=== PATIENT | female | born 1975 | race African-American/Black ===

== ENCOUNTER 2018-06-22 21:19 | Emergency (ER) | payer OTHER ==
[~2018-06-22] VITALS: Ht 152.4 cm; Wt 162.4 kg
[~2018-06-22 21:19] MED LIST: ASPI325T11 PO; ATOR10TA60 PO; DICL75TA PO; FLUT1DIS3 IH; FURO-69 PO; HYDR-2766 PO; LISI-334 PO; METF500T16 PO; OMEP40CA5 PO; ONDA4TAB7 PO; OXYC-323 PO; PROM6.257 PO
[2018-06-22] MEDS ORDERED: ASPIRIN 325 MG TABLET PO ONE (21:45)
[2018-06-22 22:11] LABS: BASO # 0.1 x10^3/uL (0.0-0.2); BASO % 1 % (0-3); EOS # 0.3 x10^3/uL (0.0-0.7); EOS % 3 % (0-3); HEMATOCRIT 40.5 % (36.0-47.0); HEMOGLOBIN 13.4 g/dL (12.0-15.5); LYMPH # 2.8 x10^3/uL (1.0-4.8); LYMPH % 29 % (24-48); MEAN CORPUSCULAR HEMOGLOBIN 26 pg (25-35); MEAN CORPUSCULAR HGB CONC 33 g/dL (31-37); MEAN CORPUSCULAR VOLUME 79 fL (79-100); MONO # 0.5 x10^3/uL (0.0-1.1); MONO % 5 % (0-9); NEUT % 62 % (31-73); PLATELET COUNT 270 x10^3/uL (140-400); RED BLOOD COUNT 5.12 x10^6/uL (3.50-5.40); RED CELL DISTRIBUTION WIDTH 15.9 % (11.5-14.5); WHITE BLOOD COUNT 9.7 x10^3/uL (4.0-11.0)
[2018-06-22] MEDS ORDERED: DEXAMETHASONE SOD PHOS 20 MG/5 ML VIAL. IV ONE (22:15)
[2018-06-22 22:19] LABS: CREATININE 1.1 mg/dL (0.6-1.0); GFR 66.6; POTASSIUM 3.5 mmol/L (3.5-5.1)
[2018-06-22 22:20] LABS: PROTHROMBIN TIME PATIENT 13.7 SEC (11.7-14.0)
[2018-06-22 22:26] LABS: ALBUMIN 3.5 g/dL (3.4-5.0); ALBUMIN/GLOBULIN RATIO 0.9 (1.0-1.7); MAGNESIUM 1.8 mg/dL (1.8-2.4); TOTAL BILIRUBIN 0.2 mg/dL (0.2-1.0); TOTAL PROTEIN 7.2 g/dL (6.4-8.2)
--- NOTE | 2018-06-22 23:13 | PHYS DOC ---
Past Medical History Past Medical History: Asthma, Diabetes-Type II, Hypertension, Pneumonia Past Surgical History: Tonsillectomy, Other Additional Past Surgical Histo: adenoidectomy, fallopian tube surgery, CARPAL TUNNEL Smoking: Quit Less Than 1 Year, Second-hand Alcohol Use: None Drug Use: None Adult General Chief Complaint Chief Complaint: CHEST PAIN HPI HPI Patient is a 42 year old female with past medical history of asthma and DM 2 hypertension and recurrent pneumonia who presents with acute onset right-sided chest pain. Patient notes pain began one hour prior to arrival and patient that pain as dull constant with severity of 8 out of 10 patient notes that she has pain radiating down the right side of her chest and into her right leg down to her foot. Patient notes she has had 2 days of productive cough and shortness of breath. Patient notes she has done 5 DuoNeb breathing treatments at home with some relief of her shortness of breath. Patient denies fevers but endorses chills Review of Systems Review of Systems Constitutional: Denies fever or chills [] Eyes: Denies change in visual acuity, redness, or eye pain [] HENT: Denies nasal congestion or sore throat [] Respiratory: Notes cough and shortness of breath [] Cardiovascular: Notes chest pain denies palpitations[] GI: Denies abdominal pain, nausea, vomiting, bloody stools or diarrhea [] : Denies dysuria or hematuria [] Musculoskeletal: right leg pain denies back pain[] Integument: Denies rash or skin lesions [] Neurologic: Denies headache, focal weakness or sensory changes [] [] Complete systems were reviewed and found to be within normal limits, except as documented in this note. Current Medications Current Medications Current Medications Medications (Trade) Dose Ordered Sig/[facility] Start Time Stop Time Status Last Admin Dose Admin Aspirin (Marilynn Aspirin) 325 mg 1X ONCE 06/22/18 21:45 06/22/18 21:51 DC Dexamethasone Sodium Phosphate (Decadron) 10 mg 1X ONCE 06/22/18 22:15 06/22/18 22:16 DC 06/22/18 22:15 10 MG Fentanyl Citrate (Fentanyl 2ml Vial) 50 mcg 1X ONCE 06/22/18 23:30 06/22/18 23:31 DC 06/22/18 23:30 50 MCG Orphenadrine Citrate (Norflex) 60 mg 1X ONCE 06/23/18 02:30 06/23/18 02:31 Allergies Allergies Allergies Coded Allergies Type Severity Reaction Last Updated Verified Iodinated Contrast- Oral and IV Dye Allergy Severe Anaphylaxis 06/22/14 Yes Latex, Natural Rubber Allergy Intermediate hives, rash 01/31/14 Yes Penicillins Allergy Intermediate hives, rash 01/31/14 Yes Sulfa (Sulfonamide Antibiotics) Allergy Intermediate hives, rash 01/31/14 Yes aspirin Allergy Intermediate 06/22/18 Yes ibuprofen Allergy Intermediate hives, rash 01/31/14 Yes propoxyphene Allergy Intermediate hives, rash 01/31/14 Yes Physical Exam Physical Exam Constitutional: Well developed, well nourished, no acute distress, non-toxic appearance. [] HENT: Normocephalic, atraumatic, bilateral external ears normal, oropharynx moist, no oral exudates, nose normal. [] Eyes: PERRLA, EOMI, conjunctiva normal, no discharge. [] Neck: Normal range of motion, no tenderness, supple, no stridor. [] Cardiovascular:Heart rate regular rhythm, no murmur [] Lungs & Thorax: Bilateral breath sounds clear to auscultation [] Abdomen: Bowel sounds normal, soft, no tenderness, no masses, no pulsatile masses. [] Skin: Warm, dry, no erythema, no rash. [] Back: No tenderness, no CVA tenderness. [] Extremities: No tenderness, no cyanosis, no clubbing, ROM intact, no edema. [] Neurologic: Alert and oriented X 3, normal motor function, normal sensory function, no focal deficits noted. [] Psychologic: Affect normal, judgement normal, mood normal. [] Current Patient Data Vital Signs Vital Signs Date Time Temp Pulse Resp B/P (MAP) Pulse Ox O2 Delivery O2 Flow Rate FiO2 06/22/18 21:26 98.4 97 22 172/110 (130) 97 Room Air 98.4 Lab Values Laboratory Tests Test 06/22/18 22:00 06/22/18 22:45 06/23/18 00:30 White Blood Count 9.7 x10^3/uL (4.0-11.0) Red Blood Count 5.12 x10^6/uL (3.50-5.40) Hemoglobin 13.4 g/dL (12.0-15.5) Hematocrit 40.5 % (36.0-47.0) Mean Corpuscular Volume 79 fL (79-100) Mean Corpuscular Hemoglobin 26 pg (25-35) Mean Corpuscular Hemoglobin Concent 33 g/dL (31-37) Red Cell Distribution Width 15.9 % (11.5-14.5) H Platelet Count 270 x10^3/uL (140-400) Neutrophils (%) (Auto) 62 % (31-73) Lymphocytes (%) (Auto) 29 % (24-48) Monocytes (%) (Auto) 5 % (0-9) Eosinophils (%) (Auto) 3 % (0-3) Basophils (%) (Auto) 1 % (0-3) Neutrophils # (Auto) 6.0 x10^3uL (1.8-7.7) Lymphocytes # (Auto) 2.8 x10^3/uL (1.0-4.8) Monocytes # (Auto) 0.5 x10^3/uL (0.0-1.1) Eosinophils # (Auto) 0.3 x10^3/uL (0.0-0.7) Basophils # (Auto) 0.1 x10^3/uL (0.0-0.2) Prothrombin Time 13.7 SEC (11.7-14.0) Prothrombin Time INR 1.1 (0.8-1.1) D-Dimer (Naina) < 0.27 ug/mlFEU Sodium Level 140 mmol/L (136-145) Potassium Level 3.5 mmol/L (3.5-5.1) Chloride Level 104 mmol/L (98-107) Carbon Dioxide Level 28 mmol/L (21-32) Anion Gap 8 (6-14) Blood Urea Nitrogen 7 mg/dL (7-20) Creatinine 1.1 mg/dL (0.6-1.0) H Estimated GFR (Cockcroft-Gault) 66.6 BUN/Creatinine Ratio 6 (6-20) Glucose Level 226 mg/dL (70-99) H Calcium Level 9.0 mg/dL (8.5-10.1) Magnesium Level 1.8 mg/dL (1.8-2.4) Total Bilirubin 0.2 mg/dL (0.2-1.0) Aspartate Amino Transferase (AST) 19 U/L (15-37) Alanine Aminotransferase (ALT) 38 U/L (14-59) Alkaline Phosphatase 66 U/L (46-116) Creatine Kinase 611 U/L (26-192) H Troponin I Quantitative < 0.017 ng/mL (0.000-0.055) < 0.017 ng/mL (0.000-0.055) MZ-Yiv-B-Type Natriuretic Peptide 104 pg/mL (0-124) Total Protein 7.2 g/dL (6.4-8.2) Albumin 3.5 g/dL (3.4-5.0) Albumin/Globulin Ratio 0.9 (1.0-1.7) L Lipase 152 U/L (73-393) Lactic Acid Level 1.4 mmol/L (0.4-2.0) Laboratory Tests 06/22/18 22:00 Laboratory Tests 06/22/18 22:00 EKG EKG @2304 NSR at 95 bpm, nonspecific t wave inversion I and aVL, NO ST elevation Radiology/Procedures Radiology/Procedures Chest x-ray -(Preliminary report the ED physician)- evaluation limited by overexposure of film. No clear consolidation seen. Markings possibly secondary to overexposure.[] Course & Med Decision Making Course & Med Decision Making 42 year-old female presenting to the emergency department for right-sided chest pain and lower extremity pain. Patient notes that the pain has been present for one hour and was dull and constant in nature with severity of 10. Patient denies diaphoresis, pleuritic pain, lower extremity swelling, dizziness, syncope , falls. Patient notes that she has had 2 days of a productive cough and chills with increased shortness of air. Patient notes she has done 5 DuoNeb breathing treatments at home with some relief. On exam lungs were clear to auscultation with good air movement and patient was satting well on room air. Gave patient fentanyl for pain and Decadron. She reports relief of chest pain with fentanyl and decrease in lower extremity pain. Lower extremity Doppler of the right lower extremity does not show any evidence of DVT. D-dimer negative. Labs collected and reviewed. Patient given the option for azithromycin and Tessalon Perles.Patient stable for discharge with outpatient follow-up with PCP. Discussed findings and plan with patient, who acknowledge understanding and agreement. [] Dragon Disclaimer Dragon Disclaimer This electronic medical record was generated, in whole or in part, using a voice recognition dictation system. Departure Departure Impression: Primary Impression: Atypical chest pain Additional Impressions: Bronchitis Right leg pain Disposition: 01 HOME, SELF-CARE Condition: STABLE Referrals: TAN BURNS (PCP) Patient Instructions: Acute Bronchitis, [id number], Chest Pain (Nonspecific) , [id number] Scripts Benzonatate (TESSALON PERLE) 100 Mg Capsule 100 MG PO TID PRN for COUGH, #20 CAP Prov: LAWSON SANDOVAL DO 06/23/18 Orphenadrine Citrate (ORPHENADRINE CITRATE) 100 Mg Tablet.er 1 TAB PO BID PRN for MUSCLE PAIN, #14 TAB 0 Refills Prov: LAWSON SANDOVAL DO 06/23/18 Azithromycin (ZITHROMAX) 250 Mg Tablet 1 PKG PO UD for bronchitis, #6 TAB Take 2 tablets on day 1 and then 1 tablet each day for the next 4 days as directed Prov: LAWSON SANDOVAL DO 06/23/18 Prednisone (PREDNISONE) 20 Mg Tablet 2 TAB PO DAILY, #8 TAB Prov: LAWSON SANDOVAL DO 06/23/18 Problem Qualifiers LAWSON SANDOVAL DO Jun 22, 2018 23:13
[2018-06-22] MEDS ORDERED: fentaNYL PF VIAL 100 MCG/2 ML VIAL IV ONE (23:30)
--- NOTE | 2018-06-22 23:42 | RAD ---
Examination: Right Lower Extremity Venous Doppler Ultrasound History: Right leg pain Comparison: None Procedure: Hopkins scale, color flow 2D and spectal waveform analysis images are obtained with and without compression in the area of the common femoral vein, superficial femoral vein - femoral vein junction, main femoral vein (superficial femoral vein) and popliteal vein. Veins of the proximal calf are also imaged. Findings: There is normal duplex flow, color flow and compressibility of all visualized vein segments. No evidence of deep venous thrombus is present. Examination somewhat limited due to patient body habitus. Impression: No evidence of DVT in the visualized right lower extremity. Electronically signed by: Ashok Carreno MD (06/22/2018 11:38 PM) [facility]
--- NOTE | 2018-06-23 01:15 | EKG ---
[facility] [address] [place] [address] Test Date: 2018-06-22 Test Time: 23:04:03 Pat Name: HERACLIO GIRALDO Department: Room: Gender: F Lending Manager: : 1975 Requested By: LAWSON SANDOVAL Order Number: [id number] Reading MD: Troy Mojica Measurements Intervals [place] Rate: 94 P: 47 WV: 126 QRS: 28 QRSD: 82 T: 62 QT: 366 QTc: 463 Interpretive Statements SINUS RHYTHM NON SPECIFIC T ABNORMALITY Electronically Signed On 06-23-2018 11:30:17 CDT by Troy Mojica
[2018-06-23] MEDS ORDERED: AZIT250T PO (01:44)
[2018-06-23] MEDS ORDERED: PRED20TA PO (01:44)
[2018-06-23] MEDS ORDERED: ORPH100T PO (01:44)
[2018-06-23] MEDS ORDERED: BENZ100C PO (01:51)
[2018-06-23 02:00] VITALS: BP 173/89
[2018-06-23] MEDS ORDERED: ORPHENADRINE CITRATE 60 MG/2 ML VIAL. IV ONE (02:30)
--- NOTE | 2018-06-23 02:41 | RAD ---
EXAM: CHEST 1 VIEW History: Shortness of breath COMPARISON: 01/31/2014 TECHNIQUE: Single portable radiograph of the chest FINDINGS: Mild cardiomegaly. Mild to moderate prominent bilateral interstitial lung markings. The costophrenic sulci are clear and well demarcated. IMPRESSION: Mild to moderate prominent bilateral interstitial lung markings likely congestive changes. Electronically signed by: Ashok Carreno MD (06/23/2018 2:38 AM) [facility]
== END 2018-06-23 02:18 | disposition home or self-care (01) ==
LOC: ER 21:19
DX: R07.89 Other chest pain (principal); J40 Bronchitis, not specified as acute or chronic; M79.604 Pain in right leg; J45.909 Unspecified asthma, uncomplicated; E11.9 Type 2 diabetes mellitus without complications; I10 Essential (primary) hypertension; Z77.22 Contact with and (suspected) exposure to environmental tobacco smoke (acute) (chronic); Z87.891 Personal history of nicotine dependence; Z88.2 Allergy status to sulfonamides; Z88.6 Allergy status to analgesic agent; Z88.0 Allergy status to penicillin; Z88.8 Allergy status to other drugs, medicaments and biological substances; Z91.041 Radiographic dye allergy status; Z91.040 Latex allergy status
CPT/HCPCS: 36415; 71046; 80053; 82550; 83605; 83690; 83735; 83880; 84484; 85025; 85379; 85610; 93005; 93971; 96374; 96375; 99285; J1100; J2360; J3010

== ENCOUNTER 2019-04-26 01:20 | Emergency (ER) | payer OTHER ==
[~2019-04-26] VITALS: Ht 152.4 cm; Wt 131.1 kg
[~2019-04-26 01:20] MED LIST changes: +AZIT250T PO; +BENZ100C PO; -HYDR-2766 PO; +HYDR-2769 PO; +ORPH100T PO; -OXYC-323 PO; +OXYC1TAB15 PO; +PRED20TA PO
[2019-04-26 03:08] LABS: BILIRUBIN,URINE SMALL (NEG); CLARITY,URINE CLEAR; COLOR,URINE AMBER; NITRITE,URINE NEGATIVE (NEG); PH,URINE 5.5; PROTEIN,URINE 30 mg/dL (NEG-TRACE)
[2019-04-26 03:13] LABS: RBC,URINE TNTC /HPF (0-2); SQUAMOUS EPITHELIAL CELL,UR FEW /LPF
[2019-04-26 03:14] LABS: BACTERIA,URINE 0 /HPF (0-FEW); WBC,URINE RARE /HPF (0-4)
[2019-04-26 03:24] LABS: BASO # 0.1 x10^3/uL (0.0-0.2); BASO % 1 % (0-3); EOS # 0.3 x10^3/uL (0.0-0.7); EOS % 3 % (0-3); HEMOGLOBIN 12.7 g/dL (12.0-15.5); LYMPH # 3.1 x10^3/uL (1.0-4.8); LYMPH % 37 % (24-48); MEAN CORPUSCULAR HEMOGLOBIN 26 pg (25-35); MEAN CORPUSCULAR HGB CONC 33 g/dL (31-37); MEAN CORPUSCULAR VOLUME 78 fL (79-100); MONO # 0.4 x10^3/uL (0.0-1.1); MONO % 5 % (0-9); NEUT # 4.6 x10^3/uL (1.8-7.7); NEUT % 54 % (31-73); PLATELET COUNT 267 x10^3/uL (140-400); RED BLOOD COUNT 4.84 x10^6/uL (3.50-5.40); RED CELL DISTRIBUTION WIDTH 14.7 % (11.5-14.5); WHITE BLOOD COUNT 8.5 x10^3/uL (4.0-11.0)
[2019-04-26 03:29] LABS: CALCIUM 8.6 mg/dL (8.5-10.1); CREATININE 1.1 mg/dL (0.6-1.0); GFR 66.2; POTASSIUM 3.2 mmol/L (3.5-5.1)
[2019-04-26] MEDS ORDERED: ONDANSETRON PF 4 MG/2 ML VIAL. IV ONE (03:30)
[2019-04-26] MEDS ORDERED: MORPHINE SULFATE 4 MG/ML VIAL. IV ONE ×2 (03:30→05:00)
[2019-04-26] MEDS ORDERED: IV NORMAL SALINE 1000ML BAG 1,000 ML IV ONE (03:30)
[2019-04-26 03:31] LABS: PROTHROMBIN TIME PATIENT 12.1 SEC (11.7-14.0)
[2019-04-26 03:37] LABS: ALBUMIN 3.4 g/dL (3.4-5.0); TOTAL BILIRUBIN 0.2 mg/dL (0.2-1.0); TOTAL PROTEIN 6.8 g/dL (6.4-8.2)
--- NOTE | 2019-04-26 04:38 | RAD ---
TRANSVAGINAL Clinical Indication: Right lower quadrant pain, evaluate ovarian cyst. Patient having surgery to remove ovary cysts May 18. Comparison: CT abdomen and pelvis without contrast, November 09, 2014. TECHNIQUE: Real-time ultrasound imaging of the pelvis using transvaginal window is performed. Findings: Anteverted uterus. Uterus measures 8.8 x 4.6 x 4 cm. There is a hypoechoic mass in the myometrium posteriorly near the fundus that is probably a subserosal fibroid measuring 2.8 x 1.7 x 2.1 cm. There is a second hypoechoic round mass on the right near the endometrium measuring 1.3 cm. The endometrial stripe is normal measuring 9 mm. There is normal blood flow in the ovaries. There is a 1.4 cm cyst adjacent to the left ovary. The cyst may be ovarian or paraovarian. There is a 5 mm calcification in the left ovary, unchanged. There is a simple cyst of the right ovary measuring up to 2.4 cm. There are 2 cysts of the right ovary that contain internal echoes, both measure up to 1.8 cm. These cysts may be hemorrhagic. No pelvic free fluid is identified. No evidence of adnexal mass. IMPRESSION: 1. Normal blood flow in the ovaries. 2. Right ovary contains 2 small functional cysts with internal echoes that may be hemorrhagic. 3. There are 2 uterine fibroids. 4. No pelvic free fluid. Electronically signed by: Seven Alatorre MD (04/26/2019 4:35 AM) [facility]
--- NOTE | 2019-04-26 04:45 | PHYS DOC ---
Past Medical History Past Medical History: Asthma, Diabetes-Type II, Hypertension, Pneumonia Past Surgical History: Tonsillectomy, Other Additional Past Surgical Histo: adenoidectomy, fallopian tube surgery, CARPAL TUNNEL, GASTRIC SLEEVE Alcohol Use: None Drug Use: None Adult General Chief Complaint Chief Complaint: ABDOMINAL PAIN HPI HPI Patient is a 43 year old f with cc of abdo pain x 24 hours right lower quadrant pain she also feels on the left she says she has known ovarian cysts she is due for surgery get them taken out in about a month. She says she's actually been dealing with this pain for 3 months but it got worse yesterday. Sharp she does not have anything at home for the pain. She currently denies of history of high blood pressure although she said that she did have it last year but it went away after her gastric sleeve was done she also her last measure. That she can remember was on April 12 however she started bleeding again today so she wasn't sure if that was an irregular cycle or related to her ovarian cyst Review of Systems Review of Systems Constitutional: Denies fever or chills [] Eyes: Denies change in visual acuity, redness, or eye pain [] HENT: Denies nasal congestion or sore throat [] Neurologic: Denies headache, focal weakness or sensory changes [] Endocrine: Denies polyuria or polydipsia [] All other systems were reviewed and found to be within normal limits, except as documented in this note. Current Medications Current Medications Current Medications Medications (Trade) Dose Ordered Sig/Dominique Start Time Stop Time Status Last Admin Dose Admin Labetalol HCl (Normodyne Iv Push) 20 mg 1X ONCE 04/26/19 05:00 04/26/19 05:01 DC 04/26/19 04:53 20 MG Morphine Sulfate (Morphine Sulfate) 4 mg 1X ONCE 04/26/19 05:00 04/26/19 05:01 DC 04/26/19 04:52 4 MG Ondansetron HCl (Zofran) 4 mg 1X ONCE 04/26/19 03:30 04/26/19 03:31 DC 04/26/19 03:21 4 MG Sodium Chloride 1,000 ml @ 1,000 mls/hr 1X ONCE 04/26/19 03:30 04/26/19 04:29 DC 04/26/19 03:21 1,000 MLS/HR Allergies Allergies Allergies Coded Allergies Type Severity Reaction Last Updated Verified Iodinated Contrast- Oral and IV Dye Allergy Severe Anaphylaxis 06/22/14 Yes Latex, Natural Rubber Allergy Intermediate hives, rash 01/31/14 Yes Penicillins Allergy Intermediate hives, rash 01/31/14 Yes Sulfa (Sulfonamide Antibiotics) Allergy Intermediate hives, rash 01/31/14 Yes aspirin Allergy Intermediate 06/22/18 Yes ibuprofen Allergy Intermediate hives, rash 01/31/14 Yes propoxyphene Allergy Intermediate hives, rash 01/31/14 Yes Physical Exam Physical Exam Constitutional: Well developed, well nourished, no acute distress, non-toxic appearance. [] HENT: Normocephalic, atraumatic, bilateral external ears normal, oropharynx moist, no oral exudates, nose normal. [] Eyes: PERRLA, EOMI, conjunctiva normal, no discharge. [] Neck: Normal range of motion, no tenderness, supple, no stridor. [] Cardiovascular:Heart rate regular rhythm, no murmur [] Abdominal exam did show some tenderness to palpation in the right inguinal region just above the inguinal ligament no peritoneal signs were noted. Left lower quadrant there is mild tenderness as well Back: No tenderness, no CVA tenderness. [] Extremities: No tenderness, no cyanosis, no clubbing, ROM intact, no edema. [] Neurologic: Alert and oriented X 3, normal motor function, normal sensory function, no focal deficits noted. [] Psychologic: Affect normal, judgement normal, mood normal. [] Current Patient Data Vital Signs Vital Signs Date Time Temp Pulse Resp B/P (MAP) Pulse Ox O2 Delivery O2 Flow Rate FiO2 04/26/19 04:53 71 204/115 04/26/19 04:52 16 99 Room Air 04/26/19 02:45 97.7 97.7 Lab Values Laboratory Tests Test 04/26/19 01:20 04/26/19 02:33 04/26/19 03:15 Urine Collection Type Unknown Urine Color Mayi Urine Clarity Clear Urine pH 5.5 Urine Specific Kel[place] >=1.030 Urine Protein 30 mg/dL (NEG-TRACE) Urine Glucose (UA) Negative mg/dL (NEG) Urine Ketones (Stick) Trace mg/dL (NEG) Urine Blood Large (NEG) Urine Nitrite Negative (NEG) Urine Bilirubin Small (NEG) Urine Urobilinogen Dipstick 1.0 mg/dL (0.2 mg/dL) Urine Leukocyte Esterase Negative (NEG) Urine RBC Tntc /HPF (0-2) Urine WBC Rare /HPF (0-4) Urine Squamous Epithelial Cells Few /LPF Urine Bacteria 0 /HPF (0-FEW) Urine Mucus Marked /LPF POC Urine HCG, Qualitative Hcg negative (Negative) White Blood Count 8.5 x10^3/uL (4.0-11.0) Red Blood Count 4.84 x10^6/uL (3.50-5.40) Hemoglobin 12.7 g/dL (12.0-15.5) Hematocrit 38.0 % (36.0-47.0) Mean Corpuscular Volume 78 fL (79-100) L Mean Corpuscular Hemoglobin 26 pg (25-35) Mean Corpuscular Hemoglobin Concent 33 g/dL (31-37) Red Cell Distribution Width 14.7 % (11.5-14.5) H Platelet Count 267 x10^3/uL (140-400) Neutrophils (%) (Auto) 54 % (31-73) Lymphocytes (%) (Auto) 37 % (24-48) Monocytes (%) (Auto) 5 % (0-9) Eosinophils (%) (Auto) 3 % (0-3) Basophils (%) (Auto) 1 % (0-3) Neutrophils # (Auto) 4.6 x10^3/uL (1.8-7.7) Lymphocytes # (Auto) 3.1 x10^3/uL (1.0-4.8) Monocytes # (Auto) 0.4 x10^3/uL (0.0-1.1) Eosinophils # (Auto) 0.3 x10^3/uL (0.0-0.7) Basophils # (Auto) 0.1 x10^3/uL (0.0-0.2) Prothrombin Time 12.1 SEC (11.7-14.0) Prothrombin Time INR 0.9 (0.8-1.1) Sodium Level 141 mmol/L (136-145) Potassium Level 3.2 mmol/L (3.5-5.1) L Chloride Level 104 mmol/L (98-107) Carbon Dioxide Level 27 mmol/L (21-32) Anion Gap 10 (6-14) Blood Urea Nitrogen 8 mg/dL (7-20) Creatinine 1.1 mg/dL (0.6-1.0) H Estimated GFR (Cockcroft-Gault) 66.2 BUN/Creatinine Ratio 7 (6-20) Glucose Level 96 mg/dL (70-99) Calcium Level 8.6 mg/dL (8.5-10.1) Total Bilirubin 0.2 mg/dL (0.2-1.0) Aspartate Amino Transferase (AST) 14 U/L (15-37) L Alanine Aminotransferase (ALT) 23 U/L (14-59) Alkaline Phosphatase 70 U/L (46-116) Total Protein 6.8 g/dL (6.4-8.2) Albumin 3.4 g/dL (3.4-5.0) Albumin/Globulin Ratio 1.0 (1.0-1.7) Lipase 124 U/L (73-393) Laboratory Tests 04/26/19 03:15 Laboratory Tests 04/26/19 03:15 EKG EKG [] Radiology/Procedures Radiology/Procedures [] Impressions: IMPRESSION: 1. Normal blood flow in the ovaries. 2. Right ovary contains 2 small functional cysts with internal echoes that may be hemorrhagic. 3. There are 2 uterine fibroids. 4. No pelvic free fluid. Electronically signed by: Seven Slater MD (04/26/2019 4:35 AM) [facility] DICTATED and SIGNED BY: SEVEN SLATER MD DATE: 04/26/19 0435 Course & Med Decision Making Course & Med Decision Making Pertinent Labs and Imaging studies reviewed. (See chart for details) []bp elev -- labetalol likely combo of undx'ed htn and pain. u/s noted pt has known cysts. no torsion Ultrasound showed no torsion. White blood count was normal we did give morphine in the emergency room which did help her pain. On further questioning it did seem like subacute pain she has had it really for a couple of months now but it got worse yesterday. She does have good follow-up in place. Noted the elevated blood pressure readings we did give a dose of IV labetalol because the blood pressure was in the 220 range. I do think she is to get back on oral blood pressure agents some of this may be related to pain but not that high. Prescription for amlodipine lisinopril and pain medication was provided return precautions were discussed and she voiced understanding of the instructions. Katt Disclaimer Katt Disclaimer This electronic medical record was generated, in whole or in part, using a voice recognition dictation system. Departure Departure Impression: Primary Impression: Ovarian cyst Disposition: HOME, SELF-CARE Condition: STABLE Referrals: TAN BURNS (PCP) Scripts Lisinopril (LISINOPRIL) 20 Mg Tablet 1 TAB PO DAILY, #30 TAB 0 Refills Prov: TRINIDAD BOOKER MD 04/26/19 Amlodipine Besylate (AMLODIPINE BESYLATE) 10 Mg Tablet 10 MG PO DAILY, #30 TAB Prov: TRINIDAD BOOKER MD 04/26/19 Hydrocodone/Apap 5-325 (NORCO 5-325 TABLET) 1 Each Tablet 1-2 EACH PO PRN Q6HRS PRN for PAIN, #15 as needed for pain Prov: TRINIDAD BOOKER MD 04/26/19 TRINIDAD BOOKER MD Apr 26, 2019 04:45
[2019-04-26] MEDS ORDERED: LISI-334 PO (04:56)
[2019-04-26] MEDS ORDERED: AMLO10TA8 PO (04:56)
[2019-04-26] MEDS ORDERED: HYDR-3164 PO (04:56)
[2019-04-26] MEDS ORDERED: LABETALOL 20 MG/4 ML DISP.SYRIN. IVP ONE (05:00)
[2019-04-26 05:15] VITALS: BP 178/116
== END 2019-04-26 05:39 | disposition home or self-care (01) ==
LOC: ER 01:20
DX: N83.291 Other ovarian cyst, right side (principal); D25.9 Leiomyoma of uterus, unspecified; J45.909 Unspecified asthma, uncomplicated; E11.9 Type 2 diabetes mellitus without complications; I10 Essential (primary) hypertension; Z98.890 Other specified postprocedural states; Z91.041 Radiographic dye allergy status; Z91.040 Latex allergy status; Z88.0 Allergy status to penicillin; Z88.2 Allergy status to sulfonamides; Z88.6 Allergy status to analgesic agent; Z88.8 Allergy status to other drugs, medicaments and biological substances
CPT/HCPCS: 36415; 76830; 80053; 81001; 81025; 83690; 85025; 85610; 96361; 96374; 96375; 96376; 99285; J2270; J2405; J3490; J7030

== ENCOUNTER 2019-05-14 23:22 | Emergency (ER) | payer MEDICAID, OTHER ==
[~2019-05-14] VITALS: Ht 152.4 cm; Wt 106.6 kg
[~2019-05-14 23:22] MED LIST changes: +AMLO10TA8 PO; +HYDR-3164 PO
[2019-05-14] MEDS ORDERED: IV NORMAL SALINE 1000ML BAG 1,000 ML IV ONE (23:45)
[2019-05-14 23:52] VITALS: BP 144/75
[2019-05-14] MEDS ORDERED: FAMOTIDINE 20 MG/2 ML VIAL IVP ONE (23:55)
[2019-05-14] MEDS ORDERED: ONDANSETRON PF 4 MG/2 ML VIAL. IV ONE (23:55)
[2019-05-15] MEDS ORDERED: DEXAMETHASONE SOD PHOS 20 MG/5 ML VIAL. IV ONE (00:15)
[2019-05-15] MEDS ORDERED: diphenhydrAMINE 50 MG/ML VIAL IVP ONE (00:15)
[2019-05-15 00:23] LABS: BILIRUBIN,URINE SMALL (NEG); CLARITY,URINE CLEAR; COLOR,URINE AMBER; NITRITE,URINE NEGATIVE (NEG); PH,URINE 5.5; PROTEIN,URINE NEGATIVE (NEG-TRACE)
[2019-05-15 00:37] LABS: BACTERIA,URINE 0 /HPF (0-FEW); HYALINE CASTS, URINE FEW /HPF; RBC,URINE OCC /HPF (0-2); SQUAMOUS EPITHELIAL CELL,UR MOD /LPF
[2019-05-15 00:46] LABS: BASO # 0.1 x10^3/uL (0.0-0.2); BASO % 1 % (0-3); EOS # 0.3 x10^3/uL (0.0-0.7); EOS % 5 % (0-3); HEMATOCRIT 39.4 % (36.0-47.0); HEMOGLOBIN 12.9 g/dL (12.0-15.5); LYMPH # 3.1 x10^3/uL (1.0-4.8); LYMPH % 42 % (24-48); MEAN CORPUSCULAR HEMOGLOBIN 26 pg (25-35); MEAN CORPUSCULAR HGB CONC 33 g/dL (31-37); MEAN CORPUSCULAR VOLUME 78 fL (79-100); MONO # 0.4 x10^3/uL (0.0-1.1); MONO % 5 % (0-9); NEUT # 3.4 x10^3/uL (1.8-7.7); NEUT % 47 % (31-73); PLATELET COUNT 302 x10^3/uL (140-400); RED BLOOD COUNT 5.02 x10^6/uL (3.50-5.40); RED CELL DISTRIBUTION WIDTH 14.6 % (11.5-14.5); WHITE BLOOD COUNT 7.3 x10^3/uL (4.0-11.0)
[2019-05-15 00:53] LABS: CALCIUM 8.8 mg/dL (8.5-10.1); GFR 73.9; POTASSIUM 3.1 mmol/L (3.5-5.1)
[2019-05-15 00:59] LABS: ALBUMIN 3.7 g/dL (3.4-5.0); MAGNESIUM 1.9 mg/dL (1.8-2.4); TOTAL BILIRUBIN 0.2 mg/dL (0.2-1.0); TOTAL PROTEIN 7.4 g/dL (6.4-8.2)
[2019-05-15 01:05] LABS: U PREG PATIENT NEGATIVE (NEG)
[2019-05-15] MEDS ORDERED: BUTALB/APAP/CAFEIN 50/325/40MG TABLET. PO ONE (02:15)
--- NOTE | 2019-05-15 02:16 | RAD ---
INDICATION: Abdomen pain COMPARISON: None. TECHNIQUE: Axial CT images obtained through the abdomen and pelvis without contrast. Limited assessment of solid organ structures and vasculature secondary to lack of intravenous contrast.. One or more of the following individualized dose reduction techniques were utilized for this examination: 1. Automated exposure control; 2. Adjustment of the mA and/or kV according to patient size; 3. Use of iterative reconstruction technique. FINDINGS: Scattered calcific atherosclerosis. No abdominal aortic aneurysm. Postcholecystectomy changes. Postoperative changes to the stomach. Poor evaluation of pancreas without contrast. Spleen unremarkable. Cystic lesion left kidney measuring up to 32 mm. No left-sided hydronephrosis. Urinary bladder is partially distended. No right-sided hydronephrosis. No periappendiceal inflammatory changes. No dilated loops of bowel to suggest obstruction. Degenerative changes the spine with multilevel central canal and neural foraminal stenosis. IMPRESSION: 1. No hydronephrosis. 2. No evidence of bowel obstruction or periappendiceal inflammation. 3. Cystic lesion left kidney. It may be helpful to obtain a nonemergent renal ultrasound to further evaluate and ensure that there is no complex component. Electronically signed by: Dami Aguilar MD (05/15/2019 2:14 AM) [facility]
[2019-05-15] MEDS ORDERED: BUTA1TAB23 PO (02:19)
[2019-05-15] MEDS ORDERED: HYOS0.1265 SL (02:19)
[2019-05-15] MEDS ORDERED: FAMO-63 PO (02:19)
[2019-05-15] MEDS ORDERED: ONDA4TAB12 PO (02:19)
--- NOTE | 2019-05-15 02:19 | PHYS DOC ---
Past Medical History Past Medical History: Asthma, Diabetes-Type II, Hypertension, Migraines, Pneumonia Past Surgical History: Tonsillectomy, Other Additional Past Surgical Histo: adenoidectomy, fallopian tube surgery, CARPAL TUNNEL, GASTRIC SLEEVE Alcohol Use: None Drug Use: None Adult General Chief Complaint Chief Complaint: ABDOMINAL PAIN HPI HPI Patient is a 43 year old [f__sex] who presents with [] Review of Systems Review of Systems Constitutional: Denies fever or chills [] Eyes: Denies change in visual acuity, redness, or eye pain [] HENT: Denies nasal congestion or sore throat [] Respiratory: Denies cough or shortness of breath [] Cardiovascular: No additional information not addressed in HPI [] GI: Denies abdominal pain, nausea, vomiting, bloody stools or diarrhea [] : Denies dysuria or hematuria [] Musculoskeletal: Denies back pain or joint pain [] Integument: Denies rash or skin lesions [] Neurologic: Denies headache, focal weakness or sensory changes [] Endocrine: Denies polyuria or polydipsia [] All other systems were reviewed and found to be within normal limits, except as documented in this note. Current Medications Current Medications Current Medications Medications (Trade) Dose Ordered Sig/Dominique Start Time Stop Time Status Last Admin Dose Admin Acetaminophen/ Butalbital/ Caffeine (Fioricet) 2 tab 1X ONCE 05/15/19 02:15 05/15/19 02:16 DC 05/15/19 02:18 2 TAB Dexamethasone Sodium Phosphate (Decadron) 10 mg 1X ONCE 05/15/19 00:15 05/15/19 00:16 DC 05/15/19 00:40 10 MG Diphenhydramine HCl (Benadryl) 25 mg 1X ONCE 05/15/19 00:15 05/15/19 00:16 DC 05/15/19 00:40 25 MG Famotidine (Pepcid Vial) 20 mg 1X ONCE 05/14/19 23:55 05/14/19 23:56 DC 05/15/19 00:40 20 MG Ondansetron HCl (Zofran) 4 mg 1X ONCE 05/14/19 23:55 05/14/19 23:56 DC 05/15/19 00:40 4 MG Sodium Chloride 1,000 ml @ 1,000 mls/hr 1X ONCE 05/14/19 23:45 05/15/19 00:44 DC 05/15/19 00:40 1,000 MLS/HR Allergies Allergies Allergies Coded Allergies Type Severity Reaction Last Updated Verified Iodinated Contrast- Oral and IV Dye Allergy Severe Anaphylaxis 06/22/14 Yes Latex, Natural Rubber Allergy Intermediate hives, rash 01/31/14 Yes Penicillins Allergy Intermediate hives, rash 01/31/14 Yes Sulfa (Sulfonamide Antibiotics) Allergy Intermediate hives, rash 01/31/14 Yes aspirin Allergy Intermediate 06/22/18 Yes ibuprofen Allergy Intermediate hives, rash 01/31/14 Yes propoxyphene Allergy Intermediate hives, rash 01/31/14 Yes Physical Exam Physical Exam Constitutional: Well developed, well nourished, no acute distress, non-toxic appearance. [] HENT: Normocephalic, atraumatic, bilateral external ears normal, oropharynx moist, no oral exudates, nose normal. [] Eyes: PERRLA, EOMI, conjunctiva normal, no discharge. [] Neck: Normal range of motion, no tenderness, supple, no stridor. [] Cardiovascular:Heart rate regular rhythm, no murmur [] Lungs & Thorax: Bilateral breath sounds clear to auscultation [] Abdomen: Bowel sounds normal, soft, no tenderness, no masses, no pulsatile masses. [] Skin: Warm, dry, no erythema, no rash. [] Back: No tenderness, no CVA tenderness. [] Extremities: No tenderness, no cyanosis, no clubbing, ROM intact, no edema. [] Neurologic: Alert and oriented X 3, normal motor function, normal sensory function, no focal deficits noted. [] Psychologic: Affect normal, judgement normal, mood normal. [] Current Patient Data Vital Signs Vital Signs Date Time Temp Pulse Resp B/P (MAP) Pulse Ox O2 Delivery O2 Flow Rate FiO2 05/14/19 23:52 67 144/75 (98) 97 Room Air 05/14/19 23:45 98.4 18 98.4 Lab Values Laboratory Tests Test 05/14/19 23:43 05/15/19 00:01 05/15/19 00:30 05/15/19 01:01 Urine Collection Type Unknown Urine Color [place] Urine Clarity Clear Urine pH 5.5 Urine Specific [place] >=1.030 Urine Protein Negative mg/dL (NEG-TRACE) Urine Glucose (UA) Negative mg/dL (NEG) Urine Ketones (Stick) Negative mg/dL (NEG) Urine Blood Large (NEG) Urine Nitrite Negative (NEG) Urine Bilirubin Small (NEG) Urine Urobilinogen Dipstick 1.0 mg/dL (0.2 mg/dL) Urine Leukocyte Esterase Negative (NEG) Urine RBC Occ /HPF (0-2) Urine WBC 1-4 /HPF (0-4) Urine Squamous Epithelial Cells Mod /LPF Urine Bacteria 0 /HPF (0-FEW) Urine Hyaline Casts Few /HPF Urine Mucus Marked /LPF Urine Test Negative (NEG) White Blood Count 7.3 x10^3/uL (4.0-11.0) Red Blood Count 5.02 x10^6/uL (3.50-5.40) Hemoglobin 12.9 g/dL (12.0-15.5) Hematocrit 39.4 % (36.0-47.0) Mean Corpuscular Volume 78 fL (79-100) L Mean Corpuscular Hemoglobin 26 pg (25-35) Mean Corpuscular Hemoglobin Concent 33 g/dL (31-37) Red Cell Distribution Width 14.6 % (11.5-14.5) H Platelet Count 302 x10^3/uL (140-400) Neutrophils (%) (Auto) 47 % (31-73) Lymphocytes (%) (Auto) 42 % (24-48) Monocytes (%) (Auto) 5 % (0-9) Eosinophils (%) (Auto) 5 % (0-3) H Basophils (%) (Auto) 1 % (0-3) Neutrophils # (Auto) 3.4 x10^3/uL (1.8-7.7) Lymphocytes # (Auto) 3.1 x10^3/uL (1.0-4.8) Monocytes # (Auto) 0.4 x10^3/uL (0.0-1.1) Eosinophils # (Auto) 0.3 x10^3/uL (0.0-0.7) Basophils # (Auto) 0.1 x10^3/uL (0.0-0.2) Sodium Level 141 mmol/L (136-145) Potassium Level 3.1 mmol/L (3.5-5.1) L Chloride Level 104 mmol/L (98-107) Carbon Dioxide Level 27 mmol/L (21-32) Anion Gap 10 (6-14) Blood Urea Nitrogen 9 mg/dL (7-20) Creatinine 1.0 mg/dL (0.6-1.0) Estimated GFR (Cockcroft-Gault) 73.9 BUN/Creatinine Ratio 9 (6-20) Glucose Level 92 mg/dL (70-99) Calcium Level 8.8 mg/dL (8.5-10.1) Magnesium Level 1.9 mg/dL (1.8-2.4) Total Bilirubin 0.2 mg/dL (0.2-1.0) Aspartate Amino Transferase (AST) 16 U/L (15-37) Alanine Aminotransferase (ALT) 25 U/L (14-59) Alkaline Phosphatase 74 U/L (46-116) Total Protein 7.4 g/dL (6.4-8.2) Albumin 3.7 g/dL (3.4-5.0) Albumin/Globulin Ratio 1.0 (1.0-1.7) Lipase 102 U/L (73-393) Lactic Acid Level 1.8 mmol/L (0.4-2.0) Laboratory Tests 05/15/19 00:30 Laboratory Tests 05/15/19 00:30 EKG EKG [] Radiology/Procedures Radiology/Procedures [] Course & Med Decision Making Course & Med Decision Making Pertinent Labs and Imaging studies reviewed. (See chart for details) [] Dragon Disclaimer Dragon Disclaimer This electronic medical record was generated, in whole or in part, using a voice recognition dictation system. Departure Departure Impression: Primary Impression: Abdominal pain Additional Impressions: Headache Hypokalemia Disposition: HOME, SELF-CARE Condition: STABLE Referrals: TAN BURNS (PCP) MIKHAIL CUELLAR MD, SCOTT S MD Patient Instructions: Abdominal Pain, [id number], Headache, FAQs, Hypokalemia-Brief, Potassium Content of Foods Scripts Butalb/Acetaminophen/Caffeine (WRPLVA-ZDBANBCH-DRJC 50-325-40) 1 Each Tablet 1 EACH PO Q6HRS PRN for HEADACHE, #14 TAB Prov: LAWSON SANDOVAL DO 05/15/19 Famotidine (PEPCID) 20 Mg Tablet 20 MG PO BID, #14 TAB Prov: LAWSON SANDOVAL DO 05/15/19 Ondansetron (ONDANSETRON ODT) 4 Mg Tab.rapdis 1 TAB PO PRN Q6-8HRS PRN for NAUSEA, #16 TAB Prov: LAWSON SANDOVAL DO 05/15/19 Hyoscyamine Sulfate (LEVSIN-SL) 0.125 Mg Tab.subl 1 TAB SL PRN Q4HRS PRN for PAIN, #20 TAB Prov: LAWSON SANDOVAL DO 05/15/19 Problem Qualifiers Primary Impression: Abdominal pain Abdominal location: right upper quadrant Qualified Codes: R10.11 - Right upper quadrant pain Additional Impressions: Headache Headache type: unspecified Headache chronicity pattern: acute headache Intractability: intractable Qualified Codes: R51 - Headache LAWSON SANDOVAL DO May 15, 2019 02:19
[2019-05-15] MEDS ORDERED: POTASSIUM CHLORIDE 20 MEQ TABLET.ER. PO ONE (02:30)
== END 2019-05-15 02:41 | disposition home or self-care (01) ==
LOC: ER 23:22
DX: R10.11 Right upper quadrant pain (principal); E87.6 Hypokalemia; G43.909 Migraine, unspecified, not intractable, without status migrainosus; J45.909 Unspecified asthma, uncomplicated; E11.9 Type 2 diabetes mellitus without complications; I10 Essential (primary) hypertension; Z90.79 Acquired absence of other genital organ(s); Z88.0 Allergy status to penicillin; Z88.2 Allergy status to sulfonamides; Z88.6 Allergy status to analgesic agent; Z91.040 Latex allergy status; Z91.041 Radiographic dye allergy status; Z88.8 Allergy status to other drugs, medicaments and biological substances
CPT/HCPCS: 36415; 74176; 80053; 81001; 81025; 83605; 83690; 83735; 85025; 96374; 96375; 99285; J1100; J1200; J2405; J3490; J7030

== ENCOUNTER 2019-07-06 11:45 | Emergency (ER) | payer MEDICARE, MEDICAID ==
[~2019-07-06] VITALS: Ht 152.4 cm; Wt 106.6 kg
[~2019-07-06 11:45] MED LIST changes: +BUTA1TAB23 PO; +FAMO-63 PO; +HYOS0.1265 SL; +ONDA4TAB12 PO
[2019-07-06 14:24] LABS: U PREG PATIENT NEGATIVE (NEG)
--- NOTE | 2019-07-06 14:35 | PHYS DOC ---
Past Medical History Past Medical History: Asthma, Diabetes-Type II, Hypertension, Migraines, Pneumonia Past Surgical History: Tonsillectomy, Other Additional Past Surgical Histo: adenoidectomy, fallopian tube surgery, CARPAL TUNNEL, GASTRIC SLEEVE Alcohol Use: None Drug Use: None Adult General Chief Complaint Chief Complaint: ABDOMINAL PAIN HPI HPI Patient is a 43 year old female presented to the ER today for evaluation of diffuse abdominal pain Started couple days ago. Patient is currently on her period as well. She described the pain as cramping stabbing in nature. Patient denies any fever. Patient complaints of nausea and vomiting. She denies any chest pain or any trouble breathing. She denies any urinary symptom. All other ROS is negative unless otherwise noted in HPI Review of Systems Review of Systems See above Current Medications Current Medications Current Medications Medications (Trade) Dose Ordered Sig/Dominique Start Time Stop Time Status Last Admin Dose Admin Morphine Sulfate (Morphine Sulfate) 4 mg 1X ONCE 07/06/19 15:15 07/06/19 15:16 DC 07/06/19 15:03 4 MG Allergies Allergies Allergies Coded Allergies Type Severity Reaction Last Updated Verified Iodinated Contrast- Oral and IV Dye Allergy Severe Anaphylaxis 06/22/14 Yes Latex, Natural Rubber Allergy Intermediate hives, rash 01/31/14 Yes Penicillins Allergy Intermediate hives, rash 01/31/14 Yes Sulfa (Sulfonamide Antibiotics) Allergy Intermediate hives, rash 01/31/14 Yes aspirin Allergy Intermediate 06/22/18 Yes ibuprofen Allergy Intermediate hives, rash 01/31/14 Yes propoxyphene Allergy Intermediate hives, rash 01/31/14 Yes Physical Exam Physical Exam See above Constitutional: Well developed, well nourished, no acute distress, non-toxic appearance. [] HENT: Normocephalic, atraumatic, bilateral external ears normal, oropharynx moist, no oral exudates, nose normal. [] Eyes: PERRLA, EOMI, conjunctiva normal, no discharge. [] Neck: Normal range of motion, no tenderness, supple, no stridor. [] Cardiovascular:Heart rate regular rhythm, no murmur [] Lungs & Thorax: Bilateral breath sounds clear to auscultation [] Abdomen: Bowel sounds normal, soft, There is tenderness palpation in mid abdominal area, no rebound, no guarding, no masses, no pulsatile masses. [] Skin: Warm, dry, no erythema, no rash. [] Back: No tenderness, no CVA tenderness. [] Extremities: No tenderness, no cyanosis, no clubbing, ROM intact, no edema. [] Neurologic: Alert and oriented X 3, normal motor function, normal sensory function, no focal deficits noted. [] Psychologic: Affect normal, judgement normal, mood normal. [] Current Patient Data Vital Signs Vital Signs Date Time Temp Pulse Resp B/P (MAP) Pulse Ox O2 Delivery O2 Flow Rate FiO2 07/06/19 15:03 18 98 Room Air 07/06/19 13:05 97.7 73 185/99 (127) 97.7 Lab Values Laboratory Tests Test 07/06/19 13:05 07/06/19 13:46 07/06/19 14:30 Urine Test Negative (NEG) Urine Collection Type Unknown Urine Color [place] Urine Clarity Bloody Urine pH Urine Specific [place] Urine Protein mg/dL (NEG-TRACE) Urine Glucose (UA) mg/dL (NEG) Urine Ketones (Stick) mg/dL (NEG) Urine Blood (NEG) Urine Nitrite (NEG) Urine Bilirubin (NEG) Urine Urobilinogen Dipstick mg/dL (0.2 mg/dL) Urine Leukocyte Esterase (NEG) Urine RBC >40 /HPF (0-2) Urine WBC Occ /HPF (0-4) Urine Squamous Epithelial Cells Mod /LPF Urine Bacteria Moderate /HPF (0-FEW) Urine Mucus Mod /LPF White Blood Count 8.8 x10^3/uL (4.0-11.0) Red Blood Count 4.81 x10^6/uL (3.50-5.40) Hemoglobin 12.3 g/dL (12.0-15.5) Hematocrit 37.2 % (36.0-47.0) Mean Corpuscular Volume 77 fL (79-100) L Mean Corpuscular Hemoglobin 26 pg (25-35) Mean Corpuscular Hemoglobin Concent 33 g/dL (31-37) Red Cell Distribution Width 14.6 % (11.5-14.5) H Platelet Count 271 x10^3/uL (140-400) Neutrophils (%) (Auto) 61 % (31-73) Lymphocytes (%) (Auto) 29 % (24-48) Monocytes (%) (Auto) 7 % (0-9) Eosinophils (%) (Auto) 3 % (0-3) Basophils (%) (Auto) 1 % (0-3) Neutrophils # (Auto) 5.4 x10^3/uL (1.8-7.7) Lymphocytes # (Auto) 2.5 x10^3/uL (1.0-4.8) Monocytes # (Auto) 0.6 x10^3/uL (0.0-1.1) Eosinophils # (Auto) 0.3 x10^3/uL (0.0-0.7) Basophils # (Auto) 0.1 x10^3/uL (0.0-0.2) Sodium Level 143 mmol/L (136-145) Potassium Level 3.3 mmol/L (3.5-5.1) L Chloride Level 106 mmol/L (98-107) Carbon Dioxide Level 27 mmol/L (21-32) Anion Gap 10 (6-14) Blood Urea Nitrogen 5 mg/dL (7-20) L Creatinine 0.9 mg/dL (0.6-1.0) Estimated GFR (Cockcroft-Gault) 83.5 BUN/Creatinine Ratio 6 (6-20) Glucose Level 126 mg/dL (70-99) H Calcium Level 8.8 mg/dL (8.5-10.1) Total Bilirubin 0.3 mg/dL (0.2-1.0) Aspartate Amino Transferase (AST) 16 U/L (15-37) Alanine Aminotransferase (ALT) 18 U/L (14-59) Alkaline Phosphatase 76 U/L (46-116) Total Protein 6.3 g/dL (6.4-8.2) L Albumin 3.3 g/dL (3.4-5.0) L Albumin/Globulin Ratio 1.1 (1.0-1.7) Lipase 87 U/L (73-393) Laboratory Tests 07/06/19 14:30 Laboratory Tests 07/06/19 14:30 EKG EKG [] Radiology/Procedures Radiology/Procedures [][facility] [address] [place] [address] IMAGING REPORT Signed PATIENT: HERACLIO GIRALDO ACCOUNT: [id number] : 1975 LOCATION: ER AGE: 43 SEX: F EXAM STATUS: REG ER ORD. PHYSICIAN: MAIRA LELA DO REASON: abdominal pain PT REQUESTED PAIN MEDS PRIOR CT 14:50PM. NC PROCEDURE: CT ABDOMEN PELVIS WO CONTRAST Study: CT abdomen and pelvis without contrast Indication: Abdominal pain. Comparison: Most recently on 05/14/2019 Technique: Helical CT imaging performed of the abdomen and pelvis without the use of intravenous contrast. Sagittal and coronal reformats were obtained. One or more of the following individualized dose reduction techniques were utilized for this examination: 1. Automated exposure control 2. Adjustment of the mA and/or kV according to patient size 3. Use of iterative reconstruction technique. Findings: The study is mildly degraded by patient body habitus. Unremarkable visualized lungs and heart. The unenhanced appearance of the liver, spleen, pancreas and adrenal glands is within normal limits. The gallbladder is surgically absent. Unchanged size of a low-attenuation focus within the left kidney such as seen on image 31 series 2. No hydronephrosis or hydroureter. Unchanged minimal wall thickening of the urinary bladder. The appearance of the uterus and ovaries is within normal limits given patient age. Minimal colonic diverticulosis without diverticulitis. The appendix is normal. Nonobstructed small bowel. Sequela of bariatric surgery without complicating features. Mild calcific atherosclerosis of a nonaneurysmal abdominal aorta. No suspicious abdomen/pelvis or inguinal lymph nodes. No free fluid or air. No significant interval change in the appearance of the body wall soft tissues or musculature. No newly seen osseous abnormality. Impression: 1. No acute abnormality seen throughout the abdomen or pelvis to account for the patient's symptoms. 2. Bariatric postsurgical changes as well as cholecystectomy without, K features. Unchanged size of a low-attenuation focus within the left kidney. Electronically signed by: FILIPPO ADRIAN MD (07/06/2019 3:41 PM) [facility] DICTATED and SIGNED BY: FILIPPO ADRIAN MD DATE: 07/06/19 1541 Course & Med Decision Making Course & Med Decision Making Pertinent Labs and Imaging studies reviewed. (See chart for details) [] Dragon Disclaimer Dragon Disclaimer This electronic medical record was generated, in whole or in part, using a voice recognition dictation system. Departure Departure Impression: Primary Impression: Abdominal pain Disposition: HOME, SELF-CARE Condition: IMPROVED Referrals: TAN BURNS (PCP) follow up with your doctor this week for reevaluation. Patient Instructions: Abdominal Pain Scripts Dicyclomine Hcl (DICYCLOMINE HCL) 20 Mg Tablet 20 MG PO QID PRN for abdominal pain, #21 TAB Prov: MAIRA LEAL DO 07/06/19 MAIRA LEAL DO Jul 06, 2019 14:35
[2019-07-06 14:45] LABS: BASO # 0.1 x10^3/uL (0.0-0.2); BASO % 1 % (0-3); EOS # 0.3 x10^3/uL (0.0-0.7); EOS % 3 % (0-3); HEMATOCRIT 37.2 % (36.0-47.0); HEMOGLOBIN 12.3 g/dL (12.0-15.5); LYMPH # 2.5 x10^3/uL (1.0-4.8); LYMPH % 29 % (24-48); MEAN CORPUSCULAR HEMOGLOBIN 26 pg (25-35); MEAN CORPUSCULAR HGB CONC 33 g/dL (31-37); MEAN CORPUSCULAR VOLUME 77 fL (79-100); MONO # 0.6 x10^3/uL (0.0-1.1); MONO % 7 % (0-9); NEUT # 5.4 x10^3/uL (1.8-7.7); NEUT % 61 % (31-73); PLATELET COUNT 271 x10^3/uL (140-400); RED BLOOD COUNT 4.81 x10^6/uL (3.50-5.40); RED CELL DISTRIBUTION WIDTH 14.6 % (11.5-14.5); WHITE BLOOD COUNT 8.8 x10^3/uL (4.0-11.0)
[2019-07-06 14:52] LABS: CALCIUM 8.8 mg/dL (8.5-10.1); CREATININE 0.9 mg/dL (0.6-1.0); GFR 83.5; POTASSIUM 3.3 mmol/L (3.5-5.1)
[2019-07-06 14:57] LABS: ALBUMIN 3.3 g/dL (3.4-5.0); ALBUMIN/GLOBULIN RATIO 1.1 (1.0-1.7); TOTAL BILIRUBIN 0.3 mg/dL (0.2-1.0); TOTAL PROTEIN 6.3 g/dL (6.4-8.2)
[2019-07-06] MEDS ORDERED: MORPHINE SULFATE 4 MG/ML VIAL. IV ONE (15:15)
--- NOTE | 2019-07-06 15:44 | RAD ---
Study: CT abdomen and pelvis without contrast Indication: Abdominal pain. Comparison: Most recently on 05/14/2019 Technique: Helical CT imaging performed of the abdomen and pelvis without the use of intravenous contrast. Sagittal and coronal reformats were obtained. One or more of the following individualized dose reduction techniques were utilized for this examination: 1. Automated exposure control 2. Adjustment of the mA and/or kV according to patient size 3. Use of iterative reconstruction technique. Findings: The study is mildly degraded by patient body habitus. Unremarkable visualized lungs and heart. The unenhanced appearance of the liver, spleen, pancreas and adrenal glands is within normal limits. The gallbladder is surgically absent. Unchanged size of a low-attenuation focus within the left kidney such as seen on image 31 series 2. No hydronephrosis or hydroureter. Unchanged minimal wall thickening of the urinary bladder. The appearance of the uterus and ovaries is within normal limits given patient age. Minimal colonic diverticulosis without diverticulitis. The appendix is normal. Nonobstructed small bowel. Sequela of bariatric surgery without complicating features. Mild calcific atherosclerosis of a nonaneurysmal abdominal aorta. No suspicious abdomen/pelvis or inguinal lymph nodes. No free fluid or air. No significant interval change in the appearance of the body wall soft tissues or musculature. No newly seen osseous abnormality. Impression: 1. No acute abnormality seen throughout the abdomen or pelvis to account for the patient's symptoms. 2. Bariatric postsurgical changes as well as cholecystectomy without, K features. Unchanged size of a low-attenuation focus within the left kidney. Electronically signed by: FILIPPO ADRIAN MD (07/06/2019 3:41 PM) [facility]
[2019-07-06 15:58] LABS: CLARITY,URINE BLOODY; COLOR,URINE PINK
[2019-07-06 15:59] LABS: BACTERIA,URINE MODERATE /HPF (0-FEW); RBC,URINE >40 /HPF (0-2); SQUAMOUS EPITHELIAL CELL,UR MOD /LPF; WBC,URINE OCC /HPF (0-4)
[2019-07-06 16:00] VITALS: BP 175/81
[2019-07-06] MEDS ORDERED: DICY20TA3 PO (16:18)
== END 2019-07-06 16:30 | disposition home or self-care (01) ==
LOC: ER 11:45
DX: R10.84 Generalized abdominal pain (principal); J45.909 Unspecified asthma, uncomplicated; E11.9 Type 2 diabetes mellitus without complications; I10 Essential (primary) hypertension; G43.909 Migraine, unspecified, not intractable, without status migrainosus; Z90.89 Acquired absence of other organs; R11.2 Nausea with vomiting, unspecified; Z88.0 Allergy status to penicillin; Z88.6 Allergy status to analgesic agent; Z88.8 Allergy status to other drugs, medicaments and biological substances; Z88.2 Allergy status to sulfonamides; Z91.041 Radiographic dye allergy status; Z91.040 Latex allergy status
CPT/HCPCS: 36415; 74176; 80053; 81001; 81025; 83690; 85025; 87086; 96374; 99285; J2270